=== PATIENT | male | born 1965 | race Caucasian/White ===

== ENCOUNTER 2016-08-12 10:20 | Day surgery (SDC) | payer OTHER ==
[2016-08-11 10:33] VITALS: Ht 172.7 cm; Wt 107.0 kg
[~2016-08-12] VITALS: Ht 172.7 cm; Wt 107.0 kg
[2016-08-12] VITALS (16 sets, daily range): BP systolic 104–140; BP diastolic 56–78; PULSE 54–88; RESP 11–23
[~2016-08-12 10:20] MED LIST: ASPI-664 PO; GABA100C14 PO; HYD25 PO; IBUP800T25 PO; LISI10TA2 PO; LOSA50TA6 PO; OMEG-135 PO; PYRI100T59 PO; VIT D3
[2016-08-12] MEDS ORDERED: CEFAZOLIN 1 GM INJ ONE (10:41)
[2016-08-12] MEDS ORDERED: SUCCINYLCHOLINE CHLORIDE 100 MG/5 ML SYG IV ONE (10:41)
[2016-08-12] MEDS ORDERED: PROPOFOL 20 ML ONE ×2 (10:41→13:03)
[2016-08-12] MEDS ORDERED: LIDOCAINE 2% (SDV) 5 ML INJ ONE (10:41)
[2016-08-12] MEDS ORDERED: FENTAnyl 50 MCG/ML VIAL ONE (10:42)
[2016-08-12] MEDS ORDERED: MIDAZOLAM 1 MG/ML 2 ML INJ ONE (10:42)
[2016-08-12] MEDS ORDERED: GABA300C16 PO (11:03)
[2016-08-12] MEDS ORDERED: GEMF600T60 PO (11:04)
[2016-08-12] MEDS ORDERED: PANT40TA3 PO (11:05)
[2016-08-12] MEDS ORDERED: PENT400T2 PO (11:06)
[2016-08-12] MEDS ORDERED: TERB250T46 PO (11:10)
[2016-08-12] MEDS ORDERED: ISON300T72 PO (11:10)
[2016-08-12] MEDS ORDERED: NIZ30CR2 TOP (11:11)
[2016-08-12] MEDS ORDERED: CHOL100062 PO (11:13)
[2016-08-12 11:45] LABS: BASOPHILS % 0.7 % (0.0-2.0); EOSINOPHILS # 0.1 10^3/ul (0.0-0.5); EOSINOPHILS % 1.1 % (0.0-7.0); HEMATOCRIT 38.2 % (42.0-52.0); HEMOGLOBIN 12.7 g/dl (14.0-18.0); LYMPHOCYTES # 2.3 10^3/ul (0.8-2.9); LYMPHOCYTES % 47.2 % (15.0-51.0); MEAN CORPUSCULAR HEMOGLOBIN 31.8 pg (29.0-33.0); MEAN CORPUSCULAR HGB CONC 33.3 g/dl (32.0-37.0); MEAN CORPUSCULAR VOLUME 95.3 fl (82.0-101.0); MEAN PLATELET VOLUME 8.8 fl (7.4-10.4); MONOCYTE # 0.4 10^3/ul (0.3-0.9); MONOCYTES % 7.3 % (0.0-11.0); NEUTROPHIL # 2.1 10^3/ul (1.6-7.5); NEUTROPHILS % 43.7 % (39.0-77.0); PLATELET COUNT 169 10^3/UL (140-440); RED BLOOD COUNT 4.01 10^6/ul (4.70-6.10); RED CELL DISTRIBUTION WIDTH 12.9 % (11.5-14.5); UNCORRECTED WBC 4.8 10^3/ul (4.8-10.8); WHITE BLOOD COUNT 4.8 10^3/ul (4.8-10.8)
--- NOTE | 2016-08-12 11:58 | RADRPT ---
PROCEDURE: XR Chest. CLINICAL INDICATION: Left flank mass. Preop evaluation. TECHNIQUE: Single AP portable chest COMPARISON: None. FINDINGS: The cardiomediastinal silhouette is within normal limits..The lungs are clear though pleural effusio n or focal consolidation. No pneumothorax. The osseous structures and soft tissues are unremarkable. IMPRESSION: No evidence for active cardiopulmonary disease. RPTAT:AAJJ Pollo Esteban Physician Date Time Electronically viewed and signed by Pollo Esteban Physician on 08/12/2016 11:58 JEREMIE/
[2016-08-12 12:00] LABS: CALCIUM 9.3 mg/dl (8.4-10.2); CREATININE 0.85 mg/dl (0.61-1.24); POTASSIUM 3.6 mmol/L (3.5-5.1)
[2016-08-12 12:04] LABS: CONDITION 1
[2016-08-12] MEDS ORDERED: LIDOCAINE 2% (MDV) 20 ML INJ ONE (12:26)
[2016-08-12] MEDS ORDERED: BUPIVACAINE 0.5% (SDV) 30 ML INJ ONE (12:26)
[2016-08-12] MEDS ORDERED: ONDANSETRON 4 MG INJ IV PRN (12:30)
[2016-08-12] MEDS ORDERED: LABETALOL HCL 20MG INJ IV PRN (12:30)
[2016-08-12] MEDS ORDERED: DIPHENHYDRAMINE 50 MG INJ IV PRN (12:30)
[2016-08-12] MEDS ORDERED: METOCLOPRAMIDE 10 MG INJ IV PRN (12:30)
[2016-08-12] MEDS ORDERED: PROCHLORPERAZINE 10 MG INJ IV PRN (12:30)
[2016-08-12] MEDS ORDERED: FENTAnyl 50 MCG/ML VIAL IV PRN (12:30)
[2016-08-12] MEDS ORDERED: HYDROmorphONE (0.2 MG/ML) 10ML SYG IV PRN ×2 (12:30)
[2016-08-12] MEDS ORDERED: KETOROLAC 30 MG INJ IV ONE (12:30)
[2016-08-12] MEDS ORDERED: hydrALAzine 20 MG INJ IV PRN (12:30)
[2016-08-12] MEDS ORDERED: MEPERIDINE 25 MG INJ IV PRN (12:30)
[2016-08-12] MEDS ORDERED: OXYCODONE/ACETAMINOPHEN (5/325) TAB PO PRN ×2 (12:30)
[2016-08-12] MEDS ORDERED: BUPIVACAINE 0.5% (MPF) 30 ML INJ INJ ONE (12:50)
[2016-08-12] MEDS ORDERED: LIDOCAINE 2% (MDV) 20 ML INJ INJ ONE (12:50)
[2016-08-12] MEDS ORDERED: METOCLOPRAMIDE 10 MG INJ ONE (12:52)
[2016-08-12] MEDS ORDERED: ONDANSETRON 4 MG INJ ONE (12:52)
[2016-08-12] MEDS ORDERED: HYDROmorphONE 2 MG/ML SYG ONE (13:02)
[2016-08-12] MEDS ORDERED: EPHEDrine SULFATE 50 MG/5 ML SYG ONE (13:10)
[2016-08-12 13:22] LABS: INR 1.01; PROTIME 13.3 Sec (12.2-14.2)
[2016-08-12 13:23] LABS: PARTIAL THROMBOPLASTIN TIME 34.7 Sec (25.0-35.0)
[2016-08-12] MEDS ORDERED: HYDROCODONE/APAP (5/325) TAB PO ONE (13:30)
--- NOTE | 2016-08-12 14:32 | OPR ---
DATE OF OPERATION: 08/12/2016 INDICATION: This is a 51-year-old male with a large left flank mass. He requests surgical excision . Risks, alternatives, benefits, and personnel were discussed with the patient. Patient expressed understanding and consents to the operation. PREOPERATIVE DIAGNOSIS: Left flank mass. POSTOPERATIVE DIAGNOSIS: Left flank mass. OPERATION PERFORMED: 1. Excision of left flank mass with 10 cm incision and 14 x 8 cm size mass. 2. Localized adjacent tissue transfer with the use of skin flaps. SURGEON: Matilde Mo MD SPECIMEN: Left flank mass. COMPLICATIONS: None. ANESTHESIA: General. DESCRIPTION OF PROCEDURE: The patient was taken to the OR and prepped and draped in the usual steri le fashion. Surgical timeout was performed. IV antibiotics were given. Left flank incision is mad e transversely with a 10 blade. Dissection cautery was carried down to the mass and circumferential ly excised. There was good hemostasis. Irrigation was used. Due to the large tissue defect, local ized adjacent tissue transfer with the use of skin flaps was performed. Multilayer closure with int errupted 3-0 Vicryl and skin ifeanyi. Local anesthesia was injected. Dry dressings were applied. Dictated By: MATILDE ALFREDO/BHAVNA Conf#: [id number] DID#: [id number]
--- NOTE | 2016-08-12 14:49 | RADRPT ---
Vent Rate: 51 bpm RR Interval: 0 msec [place] Interval: 138 msec QRS Duration: 106 msec QT Interval: 434 msec QTC Interval: 400 msec P-R-T [place]: 12 - 50 - 48 degrees Sinus bradycardia Otherwise normal ECG Electronically Signed By: Gavin Mensah [id number]
== END 2016-08-12 15:40 | disposition home or self-care (01) ==
LOC: SDS 10:20
PROVIDERS: ATTEND Surgery
DX: D17.1 Benign lipomatous neoplasm of skin and subcutaneous tissue of trunk (principal)
CPT/HCPCS: 14000; 71010; 80048; 85025; 85610; 85730; 88307; 93005; J0330; J0690; J1170; J1885; J2175; J2250; J2405; J2765; J3010; Z7512; Z7610

== ENCOUNTER 2016-10-14 11:06 | Day surgery (SDC) | payer OTHER ==
[2016-10-13 15:11] VITALS: BMI 35.0
[~2016-10-14] VITALS: Ht 177.8 cm; Wt 100.5 kg
[2016-10-14] VITALS (11 sets, daily range): BP systolic 104–143; BP diastolic 48–81; PULSE 57–62; RESP 13–25; Ht 177.8 cm; Wt 100.5 kg
[~2016-10-14 11:06] MED LIST changes: +CHOL100062 PO; +EPHEDrine SULFATE 50 MG/5 ML SYG ONE; -GABA100C14 PO; +GABA300C16 PO; +GEMF600T60 PO; +ISON300T72 PO; +NIZ30CR2 TOP; +PANT40TA3 PO; +PENT400T2 PO; +TERB250T46 PO; -VIT D3
[2016-10-14] MEDS ORDERED: SOD CHLORIDE 0.9% 1,000 ML IV SCH (12:30)
[2016-10-14] MEDS ORDERED: CEFAZOLIN 2 GM/50 ML (PMX) 50 ML IVPB ONE (12:30)
[2016-10-14] MEDS ORDERED: PROPOFOL 20 ML ONE (14:21)
[2016-10-14] MEDS ORDERED: ROCURONIUM 50 MG INJ ONE (14:21)
[2016-10-14] MEDS ORDERED: MIDAZOLAM 1 MG/ML 2 ML INJ ONE (14:21)
--- NOTE | 2016-10-14 14:46 | RADRPT ---
PROCEDURE: XR Chest. CLINICAL INDICATION: Preoperative for bilateral inguinal hernia repair. TECHNIQUE: Single frontal view. COMPARISON: 08/12/2016. FINDINGS: The lungs are clear. The heart size is normal. There is no pleural effusion. There is no pneumothorax. IMPRESSION: 1. Normal chest radiograph. 2. No change from 08/12/2016. RPTAT: QQ .Mike Fung MD, MD Date Time Electronically viewed and signed by .Mike Fung MD, MD on 10/14/2016 14:45 .R/
[2016-10-14] MEDS ORDERED: CEFAZOLIN 1 GM INJ ONE (14:49)
[2016-10-14] MEDS ORDERED: DEXAMETHASONE 4 MG/ML 1 ML INJ ONE (14:53)
[2016-10-14] MEDS ORDERED: ONDANSETRON 4 MG INJ ONE (14:53)
[2016-10-14] MEDS ORDERED: ROPIVACAINE 0.2% 20 ML VIAL ONE (14:58)
[2016-10-14] MEDS ORDERED: HYDROmorphONE (0.2 MG/ML) 10ML SYG IV PRN ×2 (15:00)
[2016-10-14] MEDS ORDERED: MEPERIDINE 25 MG INJ IV PRN (15:00)
[2016-10-14] MEDS ORDERED: PROCHLORPERAZINE 10 MG INJ IV PRN (15:00)
[2016-10-14] MEDS ORDERED: BUPIVACAINE 0.25% (MPF) 30 ML INJ ONE (15:01)
[2016-10-14] MEDS ORDERED: POLYMYXIN/BACITRACIN 1L IRRIG ONE (15:01)
--- NOTE | 2016-10-14 15:07 | RADRPT ---
Vent Rate: 54 bpm RR Interval: 0 msec [place] Interval: 138 msec QRS Duration: 118 msec QT Interval: 428 msec QTC Interval: 405 msec P-R-T [place]: 34 - 66 - 68 degrees Sinus bradycardia Nonspecific intraventricular conduction delay Borderline ECG Electronically Signed By: Jered Chatman [id number]
[2016-10-14] MEDS ORDERED: GLYCOPYRROLATE 0.4 MG INJ ONE (16:12)
[2016-10-14] MEDS ORDERED: NEOSTIGMINE 3 MG/3 ML SYRINGE ONE (16:12)
[2016-10-14] MEDS ORDERED: HYDROCODONE/APAP (5/325) TAB PO ONE (16:30)
--- NOTE | 2016-10-14 17:08 | OPR ---
DATE OF OPERATION: 10/14/2016 INDICATION: This is a 51-year-old male with bilateral inguinal hernia. He requests surgical repair . Risks, alternatives, benefits, and personnel were discussed with the patient. Patient expressed understanding and consents to the operation. PREOPERATIVE DIAGNOSIS: Bilateral inguinal hernia. POSTOPERATIVE DIAGNOSIS: Bilateral inguinal hernia. OPERATION PERFORMED: Laparoscopic bilateral inguinal hernia with Bard soft mesh. SURGEON: Matilde Mo MD COMPLICATIONS: None. ANESTHESIA: General. DESCRIPTION OF PROCEDURE: The patient was taken to the OR and prepped and draped in usual sterile f ashion. Surgical timeout was performed. IV antibiotics given. Infraumbilical transverse incision is made with a 15 blade. Dissection cautery was carried down to the fascia which was divided with c urved Gomez scissors. An 0 Vicryl U-stitch was placed into the fascia. Balloon Sunny trocar was in troduced. Pneumoperitoneum was established. Left flank 5 mm trocars were placed x2. Right flank 5 mm trocars were placed x2. Upon initial inspection, the peritoneal flaps were created in the right and left side. The cord structures were identified in the right side. The indirect hernia was red uced laparoscopically. Pubic tubercle was identified. Bard soft mesh is fashioned with straps and a keyhole incision for the cord structures. This was secured in place with SecureStrap at the pubic tubercle and the superior anterior abdominal wall. Straps were reapproximated around the cord stru ctures to recreate the inguinal ring. Peritoneal flap was then covered over the mesh to provide pro tection away from intra-abdominal contents. Attention was then paid to the left side. Peritoneal f laps were created, and the much larger inguinal indirect hernia is reduced. The cord structures are identified. A Bard soft mesh is fashioned with a keyhole incision with straps to recreate the ingu inal ring. This was secured in place to the pubic tubercle and to the superior anterior abdominal w all. The straps were approximated around the cord structures to recreate the inguinal ring. Perito vesta flap was secured to completely cover the mesh on both sides to allow protection away from the i ntra-abdominal contents. There was good hemostasis. Ports were removed under direct visualization, 0 Vicryl U-stitch was tied down. Skin was closed using skin ifeanyi. Local anesthesia was injecte d. Dry dressings were applied. Dictated By: MATILDE ALFREDO/BHAVNA Conf#: [id number] DID#: [id number]
== END 2016-10-14 19:00 | disposition home or self-care (01) ==
LOC: SDS 11:06
PROVIDERS: ATTEND Surgery
DX: K40.20 Bilateral inguinal hernia, without obstruction or gangrene, not specified as recurrent (principal); I10 Essential (primary) hypertension; F17.200 Nicotine dependence, unspecified, uncomplicated
CPT/HCPCS: 49650; 71010; 93005; J0690; J1100; J2175; J2250; J2405; J2710; J2795; J3010; Z7512; Z7610